=== PATIENT | female | born 1965 | race Caucasian/White ===

== ENCOUNTER 2022-02-19 10:58 | Observation (INO) | payer OTHER ==
[~2022-02-19] VITALS: Ht 170.2 cm; Wt 72.8 kg
[2022-02-19 11:32] LABS: BASOPHILS % (AUTO) 0.9 % (0.0-5.0); HEMATOCRIT 37.9 % (36-48); LYMPHOCYTES % (AUTO) 10.7 % (21.0-51.0); MEAN CORPUSCULAR HEMOGLOBIN 31.4 pg (27.0-33.0); MEAN CORPUSCULAR VOLUME 92.2 fL (79-99); MONOCYTES % (AUTO) 12.4 % (3.0-13.0); NEUTROPHILS % (AUTO) 75.4 % (40.0-77.0); PLATELET COUNT (AUTO) 158 K/uL (130-400); RED BLOOD CELL COUNT(AUTO) 4.11 MIL/uL (4.00-5.50); RED CELL DISTRIBUTION WIDTH 12.9 % (11.0-15.5); WHITE BLOOD COUNT (AUTO) 3.4 K/uL (4.8-10.8)
[2022-02-19 11:45] LABS: CREATININE 0.9 mg/dL (0.5-1.5); POTASSIUM 3.3 mmol/L (3.5-5.1)
[2022-02-19 11:52] LABS: ALBUMIN 3.9 g/dL (3.5-5.0); TOTAL PROTEIN, SERUM 7.3 g/dL (6.0-8.3)
[2022-02-19] MEDS ORDERED: ONDANSETRON 4MG INJ ONE (13:48)
[2022-02-19] MEDS: CEFAZOLIN SODIUM 1 GM VIAL IVP SCH ×3 (13:51→22:38)
[2022-02-19] MEDS ORDERED: ONDANSETRON 4MG INJ IVP PRN (15:00)
[2022-02-19] MEDS ORDERED: VANCOMYCIN PROTOCOL PER PHARMACY IV SCH (15:00)
[2022-02-19 16:00] VITALS: BP 126/72
[2022-02-19] MEDS: ACETAMINOPHEN 325 MG TAB PO PRN (16:59)
[2022-02-19] MEDS: VANCOMYCIN 1G/250ML KIT 250 ML IV SCH (17:57)
[2022-02-19 20:01] VITALS: BP 102/57
[2022-02-19 23:28] VITALS: BP 105/61
[2022-02-20] MEDS: ACETAMINOPHEN 325 MG TAB PO PRN ×3 (00:47→21:55)
[2022-02-20] MEDS ORDERED: 0.9% NACL 250ML 250 ML ONE (03:17)
[2022-02-20] MEDS: VANCOMYCIN 1G/250ML KIT 250 ML IV SCH ×2 (03:32→16:06)
[2022-02-20 03:46] VITALS: BP 103/59
[2022-02-20 04:53] LABS: BASOPHILS % (AUTO) 1.1 % (0.0-5.0); LYMPHOCYTES % (AUTO) 14.1 % (21.0-51.0); MEAN CORPUSCULAR HGB CONC 33.1 g/dL (32.0-36.0); MEAN CORPUSCULAR VOLUME 93.6 fL (79-99); MONOCYTES % (AUTO) 10.6 % (3.0-13.0); NEUTROPHILS % (AUTO) 73.8 % (40.0-77.0); PLATELET COUNT (AUTO) 133 K/uL (130-400); RED BLOOD CELL COUNT(AUTO) 3.74 MIL/uL (4.00-5.50); RED CELL DISTRIBUTION WIDTH 12.8 % (11.0-15.5); WHITE BLOOD COUNT (AUTO) 2.8 K/uL (4.8-10.8)
[2022-02-20 05:03] LABS: CREATININE 0.9 mg/dL (0.5-1.5); MAGNESIUM 1.9 mg/dL (1.80-2.40); POTASSIUM 3.8 mmol/L (3.5-5.1)
[2022-02-20 05:45] LABS: BAND NEUTROPHILS % (MANUAL) 14 % (0-2); LYMPHOCYTES % (MANUAL) 9 % (22-44); MONOCYTES % (MANUAL) 8 % (2-9); REACTIVE LYMPHOCYTES 3 % (0-0); SEGMENTED NEUTROPHILS % 66 % (40-70)
[2022-02-20 05:46] LABS: MAN.DIFF COMMENT-IMPRESSION MANUAL DIFFERENTIAL; PLATELET MORPHOLOGY COMMENT ADEQUATE
[2022-02-20] MEDS: CEFAZOLIN SODIUM 1 GM VIAL IVP SCH ×4 (06:18→22:30)
[2022-02-20 07:00] VITALS: BP 125/63
[2022-02-20 11:00] VITALS: BP 110/66
[2022-02-20 15:31] VITALS: BP 113/61
[2022-02-20 19:50] VITALS: BP 111/63
[2022-02-20 23:46] VITALS: BP 102/57
[2022-02-21 03:41] VITALS: BP 102/57
[2022-02-21] MEDS: VANCOMYCIN 1G/250ML KIT 250 ML IV SCH (04:36)
[2022-02-21] MEDS: CEFAZOLIN SODIUM 1 GM VIAL IVP SCH (06:41)
[2022-02-21 08:00] VITALS: BP 115/64
[2022-02-21] MEDS: ACETAMINOPHEN 325 MG TAB PO PRN (08:15)
[2022-02-21] MEDS ORDERED: FOLIC ACID 1 MG TABLET PO SCH (09:00)
[2022-02-21] MEDS ORDERED: CYANOCOBALAMIN (VITAMIN B-12) 1,000 MCG TABLET PO SCH (09:00)
[2022-02-21 11:13] LABS: HEMATOCRIT 37.4 % (36-48); MEAN CORPUSCULAR HEMOGLOBIN 31.2 pg (27.0-33.0); MEAN CORPUSCULAR VOLUME 91.9 fL (79-99); PLATELET COUNT (AUTO) 119 K/uL (130-400); RED BLOOD CELL COUNT(AUTO) 4.07 MIL/uL (4.00-5.50); RED CELL DISTRIBUTION WIDTH 12.7 % (11.0-15.5); WHITE BLOOD COUNT (AUTO) 2.1 K/uL (4.8-10.8)
[2022-02-21 11:30] VITALS: BP 101/57
[2022-02-21 12:01] LABS: EOSINOPHILS % (MANUAL) 2 % (1-6); LYMPHOCYTES % (MANUAL) 24 % (22-44); MAN.DIFF COMMENT-IMPRESSION MANUAL DIFFERENTIAL; MONOCYTES % (MANUAL) 6 % (2-9); SEGMENTED NEUTROPHILS % 68 % (40-70)
== END 2022-02-21 15:00 | disposition home or self-care (01) ==
LOC: EDH 10:58 → EDHIP 13:43 → 3BH 15:08
PROVIDERS: ADMIT Internal Medicine Infectious Disease; ATTEND Internal Medicine Infectious Disease
DX: L03.211 Cellulitis of face (principal); A46 Erysipelas; E87.6 Hypokalemia; D64.9 Anemia, unspecified; D72.819 Decreased white blood cell count, unspecified; D69.6 Thrombocytopenia, unspecified; I10 Essential (primary) hypertension; Z79.899 Other long term (current) drug therapy
CPT/HCPCS: 96376 ×3; 96365; 96366 ×3; 96375 ×2; 99285; 80053; 85025 ×2; 87040 ×2; 83605; 36415 ×3; 83735; 80048; 85027; G0378 ×48; J0690 ×6; J2405 ×3; J3370 ×4; J7050

== ENCOUNTER → 2024-05-16 | Outpatient (CLI) | payer OTHER ==
--- NOTE | 2024-05-16 14:52 | HMCIMG ---
CT CORONARY CALCIFICATION SCORING: Anatomic images were reviewed. The calcium score is being generated and reported separately. This report is for the visualized anatomy only. Visualized portions of the lungs are clear. Hilar and mediastinal structures appear normal. Osseous structures are unremarkable. Impression: 1. Negative noncardiac anatomic findings. 2. The calcium score is 70 consistent with absence of calcified plaque. CT was performed with one or more following dose reduction techniques: automated exposure control, adjustment of the mA and kv according to patient's size, or use of a iterative reconstruction technique.
== END | disposition home or self-care (01) ==
LOC: RAH 14:09
PROVIDERS: ATTEND Physician Assistant Medical
DX: Z13.6 Encounter for screening for cardiovascular disorders (principal)
CPT/HCPCS: 75571